=== PATIENT | female | born 1955 | race Caucasian/White ===

== ENCOUNTER 2017-12-18 03:52 | Emergency (ER) | payer OTHER ==
[2017-12-18] MEDS: LABETALOL HCL 20MG INJ IV (04:00)
[2017-12-18 04:19] LABS: ADD MAN DIFF? NO
[2017-12-18 04:20] LABS: WHITE BLOOD COUNT 9.6 10^3/ul (4.8-10.8)
[2017-12-18 04:20] LABS: BASOPHIL # 0.1 10^3/ul (0.0-0.1); BASOPHILS % 0.5 % (0.0-2.0); EOSINOPHILS # 0.2 10^3/ul (0.0-0.5); EOSINOPHILS % 2.1 % (0.0-7.0); HEMOGLOBIN 14.6 g/dl (12.0-16.0); LYMPHOCYTES # 3.2 10^3/ul (0.8-2.9); LYMPHOCYTES % 33.5 % (15.0-51.0); MEAN CORPUSCULAR HEMOGLOBIN 29.5 pg (29.0-33.0); MEAN CORPUSCULAR HGB CONC 33.2 g/dl (32.0-37.0); MEAN CORPUSCULAR VOLUME 88.9 fl (82.0-101.0); MEAN PLATELET VOLUME 10.4 fl (7.4-10.4); MONOCYTE # 0.8 10^3/ul (0.3-0.9); MONOCYTES % 8.5 % (0.0-11.0); NEUTROPHIL # 5.3 10^3/ul (1.6-7.5); NEUTROPHILS % 55.2 % (39.0-77.0); PLATELET COUNT 225 10^3/UL (140-415); RED BLOOD COUNT 4.95 10^6/ul (4.20-5.40); RED CELL DISTRIBUTION WIDTH 13.8 % (11.5-14.5)
[2017-12-18] MEDS: ACETAMINOPHEN 500 MG TAB PO (04:31)
[2017-12-18] MEDS: SOD CHLORIDE 0.9% 500 ML IV (04:31)
[2017-12-18 04:47] LABS: ANION GAP 17 (8-16); BLOOD UREA NITROGEN 13 mg/dl (7-20); CALCIUM 9.8 mg/dl (8.4-10.2); CARBON DIOXIDE 27 mmol/L (21-31); CHLORIDE 106 mmol/L (97-110); CREATINE KINASE 116 IU/L (23-200); CREATININE 0.87 mg/dl (0.44-1.00); GLUCOSE 128 mg/dl (70-220); POTASSIUM 3.8 mmol/L (3.5-5.1); SODIUM 146 mmol/L (135-144)
[2017-12-18 05:00] LABS: CK INDEX 0.7; TROPONIN-I < 0.012 ng/ml (0.000-0.120)
[2017-12-18 05:01] LABS: TROPONIN-I < 0.012 ng/ml (0.000-0.120)
== END 2017-12-18 06:02 | disposition home or self-care (01) ==
LOC: E/R 03:52
DX: I10 Essential (primary) hypertension (principal); R51 Headache; E03.9 Hypothyroidism, unspecified
CPT/HCPCS: 36415; 71045; 80048; 82550; 82553; 84484; 85025; 93005; 99285-25

== ENCOUNTER 2018-09-30 18:58 | Inpatient (IN) | payer OTHER ==
[2018-09-30] MEDS: ONDANSETRON 4 MG INJ IV (21:58)
[2018-09-30] MEDS: morphine 4 MG/ML VIAL IV (21:59)
[2018-09-30 22:11] LABS: ADD MAN DIFF? NO
[2018-09-30 22:14] LABS: BASOPHILS % 0.3 % (0.0-2.0); EOSINOPHILS # 0.1 10^3/ul (0.0-0.5); EOSINOPHILS % 0.7 % (0.0-7.0); HEMATOCRIT 44.6 % (37.0-47.0); HEMOGLOBIN 14.7 g/dl (12.0-16.0); LYMPHOCYTES # 1.9 10^3/ul (0.8-2.9); LYMPHOCYTES % 20.6 % (15.0-51.0); MEAN CORPUSCULAR HEMOGLOBIN 28.9 pg (29.0-33.0); MEAN CORPUSCULAR VOLUME 87.6 fl (82.0-101.0); MEAN PLATELET VOLUME 10.6 fl (7.4-10.4); MONOCYTE # 0.5 10^3/ul (0.3-0.9); MONOCYTES % 4.9 % (0.0-11.0); NEUTROPHIL # 6.8 10^3/ul (1.6-7.5); NEUTROPHILS % 73.2 % (39.0-77.0); PLATELET COUNT 252 10^3/UL (140-415); RED BLOOD COUNT 5.09 10^6/ul (4.20-5.40); RED CELL DISTRIBUTION WIDTH 14.4 % (11.5-14.5)
[2018-09-30 22:14] LABS: WHITE BLOOD COUNT 9.2 10^3/ul (4.8-10.8)
[2018-09-30 22:22] LABS: ALANINE AMINOTRANSFERASE 635 IU/L (13-69); ALBUMIN 4.8 g/dl (3.3-4.9); ALBUMIN/GLOBULIN RATIO 1.37; ALKALINE PHOSPHATASE 196 IU/L (42-121); ANION GAP 14 (5-13); ASPARTATE AMINO TRANSFERASE 451 IU/L (15-46); BILIRUBIN,INDIRECT 1.9 mg/dl (0-1.1); BILIRUBIN,TOTAL 2.3 mg/dl (0.2-1.3); BLOOD UREA NITROGEN 9 mg/dl (7-20); CALCIUM 9.9 mg/dl (8.4-10.2); CARBON DIOXIDE 27 mmol/L (21-31); CHLORIDE 101 mmol/L (97-110); CREATININE 0.88 mg/dl (0.44-1.00); Estimated GFR > 60 mL/min (>60); GLUCOSE 150 mg/dl (70-220); LIPASE 81 U/L (23-300); POTASSIUM 3.9 mmol/L (3.5-5.1); SODIUM 142 mmol/L (135-144); TOTAL PROTEIN 8.3 g/dl (6.1-8.1)
[2018-09-30 22:26] LABS: ADD UMIC YES; UR ASCORBIC ACID NEGATIVE (NEGATIVE); UR BILIRUBIN (Dip) NEGATIVE (NEGATIVE); UR BLOOD (Dip) 2+ mg/dL (NEGATIVE); UR CLARITY CLEAR (CLEAR); UR COLOR YELLOW (YELLOW); UR GLUCOSE (Dip) NEGATIVE (NEGATIVE); UR KETONES (Dip) NEGATIVE (NEGATIVE); UR LEUKOCYTE ESTERASE (Dip) NEGATIVE Leu/ul (NEGATIVE); UR NITRITE (Dip) NEGATIVE (NEGATIVE); UR RBC 4 /HPF (0-5); UR SPECIFIC GRAVITY (Dip) 1.004 (1.003-1.030); UR TOTAL PROTEIN (Dip) NEGATIVE (NEGATIVE); UR UROBILINOGEN (Dip) 2+ mg/dL (NEGATIVE); UR WBC 1 /HPF (0-5)
[2018-09-30 22:34] LABS: TROPONIN-I < 0.012 ng/ml (0.000-0.120)
[2018-10-01] MEDS ORDERED: BISACODYL (EC) 5 MG TAB PO (00:30)
[2018-10-01] MEDS ORDERED: HYDROmorphONE 0.5 MG/0.5 ML SYG IV (00:30)
[2018-10-01] MEDS ORDERED: NACL 0.9% 3 ML SYG IV (00:30)
[2018-10-01] MEDS ORDERED: ACETAMINOPHEN 325 MG TAB PO (00:30)
[2018-10-01] MEDS ORDERED: DOCUSATE SODIUM 100 MG CAP PO (00:30)
[2018-10-01 01:02] LABS: HAAIG REFLEX REFLEX FILED
[2018-10-01 01:20] LABS: ETHANOL < 10.0 mg/dl (0-0)
[2018-10-01 02:03] LABS: HEPATITIS B SURFACE ANTIGEN NEGATIVE (NEGATIVE)
[2018-10-01 02:16] LABS: ACETAMINOPHEN < 10.0 ug/ml (10.0-30.0)
[2018-10-01 02:16] LABS: SALICYLATE < 1.0 mg/dl (5.0-30.0)
[2018-10-01 02:21] LABS: HEPATITIS B CORE ANTIBODY NEGATIVE (NEGATIVE); HEPATITIS C VIRAL ANTIBODY NEGATIVE (NEGATIVE)
[2018-10-01] MEDS ORDERED: LORATADINE 10 MG TAB PO (03:00)
[2018-10-01 03:25] LABS: HEPATITIS B SURFACE ANTIBODY NEGATIVE (NEGATIVE)
[2018-10-01] MEDS: LOSARTAN 25 MG TAB PO ×2 (03:27→20:24)
[2018-10-01 05:51] LABS: ADD MAN DIFF? NO
[2018-10-01 05:57] LABS: BASOPHILS % 0.3 % (0.0-2.0); EOSINOPHILS # 0.2 10^3/ul (0.0-0.5); EOSINOPHILS % 2.5 % (0.0-7.0); HEMATOCRIT 42.3 % (37.0-47.0); HEMOGLOBIN 13.8 g/dl (12.0-16.0); LYMPHOCYTES # 1.9 10^3/ul (0.8-2.9); LYMPHOCYTES % 31.4 % (15.0-51.0); MEAN CORPUSCULAR HEMOGLOBIN 28.8 pg (29.0-33.0); MEAN CORPUSCULAR HGB CONC 32.6 g/dl (32.0-37.0); MEAN CORPUSCULAR VOLUME 88.3 fl (82.0-101.0); MEAN PLATELET VOLUME 10.7 fl (7.4-10.4); MONOCYTE # 0.4 10^3/ul (0.3-0.9); MONOCYTES % 6.4 % (0.0-11.0); NEUTROPHIL # 3.5 10^3/ul (1.6-7.5); NEUTROPHILS % 59.1 % (39.0-77.0); PLATELET COUNT 230 10^3/UL (140-415); RED BLOOD COUNT 4.79 10^6/ul (4.20-5.40); RED CELL DISTRIBUTION WIDTH 14.6 % (11.5-14.5)
[2018-10-01 05:57] LABS: WHITE BLOOD COUNT 5.9 10^3/ul (4.8-10.8)
[2018-10-01 06:17] LABS: HEMOGLOBIN A1C 5.4 % (0-5.9)
[2018-10-01 07:10] LABS: ALANINE AMINOTRANSFERASE 554 IU/L (13-69); ALBUMIN 4.2 g/dl (3.3-4.9); ALBUMIN/GLOBULIN RATIO 1.27; ALKALINE PHOSPHATASE 166 IU/L (42-121); ANION GAP 9 (5-13); ASPARTATE AMINO TRANSFERASE 334 IU/L (15-46); BLOOD UREA NITROGEN 9 mg/dl (7-20); CALCIUM 9.7 mg/dl (8.4-10.2); CARBON DIOXIDE 28 mmol/L (21-31); CHLORIDE 105 mmol/L (97-110); CHOL/HDL RATIO 3.1 RATIO; CHOLESTEROL 237 mg/dl (100-200); CREATININE 0.88 mg/dl (0.44-1.00); Estimated GFR > 60 mL/min (>60); GLUCOSE 90 mg/dl (70-220); HDL CHOLESTEROL 75 mg/dl (35-98); LDL CHOLESTEROL,CALCULATED 149 mg/dl; MAGNESIUM 1.9 mg/dl (1.7-2.5); POTASSIUM 3.9 mmol/L (3.5-5.1); SODIUM 142 mmol/L (135-144); TOTAL PROTEIN 7.5 g/dl (6.1-8.1); TRIGLYCERIDES 66 mg/dl (0-149)
[2018-10-01] MEDS: LEVOTHYROXINE 88 MCG TAB PO (07:28)
[2018-10-01] MEDS: FLUTICASONE 0.05% 16 GM NAS SPRAY NASAL ×3 (08:23→20:24)
[2018-10-01] MEDS: FAMOTIDINE 20 MG TAB PO ×2 (08:23→20:23)
[2018-10-01] MEDS ORDERED: LEVOTHYROXINE 88 MCG TAB PO (09:00)
[2018-10-01 10:51] LABS: INR 0.95; PROTIME 12.8 Sec (11.9-14.9)
[2018-10-01] MEDS: KETOROLAC 30 MG INJ IV (15:06)
[2018-10-01] MEDS ORDERED: LIDOCAINE 100 MG SYRINGE (17:08)
[2018-10-01] MEDS ORDERED: DEXAMETHASONE 4 MG/ML 5 ML INJ (17:08)
[2018-10-01] MEDS ORDERED: ONDANSETRON 4 MG INJ (17:08)
[2018-10-01] MEDS ORDERED: SUGAMMADEX SODIUM 200 MG/2 ML VIAL IV (17:08)
[2018-10-01] MEDS ORDERED: ROCURONIUM 50 MG INJ (17:08)
[2018-10-01] MEDS ORDERED: PROPOFOL 100 ML (17:08)
[2018-10-01] MEDS ORDERED: LABETALOL HCL 20MG INJ IV (17:30)
[2018-10-01] MEDS ORDERED: METOCLOPRAMIDE 10 MG INJ IV (17:30)
[2018-10-01] MEDS ORDERED: INDOMETHACIN 50 MG SUPP PR (17:30)
[2018-10-01] MEDS ORDERED: FENTAnyl 50 MCG/ML VIAL IV ×2 (17:30)
[2018-10-01] MEDS ORDERED: ONDANSETRON 4 MG INJ IV (17:30)
[2018-10-01] MEDS ORDERED: hydrALAzine 20 MG INJ IV (17:30)
[2018-10-01] MEDS ORDERED: FENTAnyl 50 MCG/ML VIAL ×2 (17:36→18:18)
[2018-10-02 05:17] LABS: ADD MAN DIFF? NO
[2018-10-02 05:23] LABS: BASOPHILS % 0.1 % (0.0-2.0); HEMATOCRIT 43.2 % (37.0-47.0); HEMOGLOBIN 14.2 g/dl (12.0-16.0); LYMPHOCYTES # 1.1 10^3/ul (0.8-2.9); LYMPHOCYTES % 11.6 % (15.0-51.0); MEAN CORPUSCULAR HGB CONC 32.9 g/dl (32.0-37.0); MEAN CORPUSCULAR VOLUME 88.2 fl (82.0-101.0); MEAN PLATELET VOLUME 10.6 fl (7.4-10.4); MONOCYTE # 0.2 10^3/ul (0.3-0.9); MONOCYTES % 1.9 % (0.0-11.0); NEUTROPHIL # 7.8 10^3/ul (1.6-7.5); PLATELET COUNT 242 10^3/UL (140-415); RED CELL DISTRIBUTION WIDTH 14.2 % (11.5-14.5)
[2018-10-02] MEDS: LEVOTHYROXINE 88 MCG TAB PO (05:26)
[2018-10-02 05:46] LABS: PHOSPHORUS 3.2 mg/dl (2.5-4.9)
[2018-10-02 05:46] LABS: MAGNESIUM 1.7 mg/dl (1.7-2.5)
[2018-10-02 05:49] LABS: ALANINE AMINOTRANSFERASE 416 IU/L (13-69); ALBUMIN 4.1 g/dl (3.3-4.9); ALBUMIN/GLOBULIN RATIO 1.28; ALKALINE PHOSPHATASE 152 IU/L (42-121); ANION GAP 9 (5-13); ASPARTATE AMINO TRANSFERASE 162 IU/L (15-46); BILIRUBIN,INDIRECT 1.1 mg/dl (0-1.1); BILIRUBIN,TOTAL 1.1 mg/dl (0.2-1.3); BLOOD UREA NITROGEN 13 mg/dl (7-20); CALCIUM 9.7 mg/dl (8.4-10.2); CARBON DIOXIDE 27 mmol/L (21-31); CHLORIDE 104 mmol/L (97-110); Estimated GFR > 60 mL/min (>60); GLUCOSE 150 mg/dl (70-220); POTASSIUM 4.5 mmol/L (3.5-5.1); SODIUM 140 mmol/L (135-144); TOTAL PROTEIN 7.3 g/dl (6.1-8.1)
[2018-10-02] MEDS ORDERED: SUCCINYLCHOLINE CHLORIDE 100 MG/5 ML SYG IV (07:00)
[2018-10-02] MEDS ORDERED: ROPIVACAINE 0.5 % 30 ML VIAL (07:59)
[2018-10-02] MEDS ORDERED: ROCURONIUM 50 MG INJ (07:59)
[2018-10-02] MEDS ORDERED: LIDOCAINE 1% (MDV) 20 ML INJ (07:59)
[2018-10-02] MEDS ORDERED: MIDAZOLAM 1 MG/ML 2 ML INJ (07:59)
[2018-10-02] MEDS ORDERED: PROPOFOL 20 ML (07:59)
[2018-10-02] MEDS ORDERED: HYDROmorphONE 1 MG/5 ML IV SYRINGE IV (08:00)
[2018-10-02] MEDS ORDERED: LABETALOL HCL 20MG INJ IV (08:00)
[2018-10-02] MEDS ORDERED: DIPHENHYDRAMINE 50 MG INJ IV (08:00)
[2018-10-02] MEDS ORDERED: MEPERIDINE 25 MG INJ IV (08:00)
[2018-10-02] MEDS ORDERED: CEFAZOLIN 1 GM INJ (08:34)
[2018-10-02] MEDS ORDERED: DEXAMETHASONE 4 MG/ML 5 ML INJ (08:38)
[2018-10-02] MEDS ORDERED: ONDANSETRON 4 MG INJ (08:38)
[2018-10-02] MEDS: BUPIVACAINE 0.25% (MPF) 30 ML INJ (08:44)
[2018-10-02] MEDS ORDERED: LABETALOL HCL 20MG INJ (08:56)
[2018-10-02] MEDS: FLUTICASONE 0.05% 16 GM NAS SPRAY NASAL ×2 (09:00→20:50)
[2018-10-02] MEDS: FAMOTIDINE 20 MG TAB PO ×2 (09:00→20:54)
[2018-10-02] MEDS ORDERED: NEOSTIGMINE 10 MG INJ (09:17)
[2018-10-02] MEDS ORDERED: GLYCOPYRROLATE 0.4 MG INJ (09:17)
[2018-10-02 09:46] LABS: FREE T4 (FREE THYROXINE) 0.96 ng/dl (0.78-2.44)
[2018-10-02] MEDS ORDERED: ONDANSETRON 4 MG INJ IV (10:00)
[2018-10-02] MEDS ORDERED: OXYCODONE/ACETAMINOPHEN (5/325) TAB PO ×2 (10:00)
[2018-10-02] MEDS ORDERED: morphine 2 MG INJ IV (10:00)
[2018-10-02] MEDS: ONDANSETRON 4 MG INJ IV (10:32)
[2018-10-02] MEDS: HYDROmorphONE 1 MG/5 ML IV SYRINGE IV (10:32)
[2018-10-02] MEDS: hydrALAzine 20 MG INJ IV (10:33)
[2018-10-02] MEDS: KETOROLAC 30 MG INJ IV (17:25)
[2018-10-02] MEDS: LOSARTAN 25 MG TAB PO (20:50)
[2018-10-03 05:57] LABS: ADD MAN DIFF? NO
[2018-10-03 06:02] LABS: BASOPHILS % 0.1 % (0.0-2.0); EOSINOPHILS % 0.1 % (0.0-7.0); HEMATOCRIT 36.8 % (37.0-47.0); HEMOGLOBIN 12.3 g/dl (12.0-16.0); LYMPHOCYTES # 2.1 10^3/ul (0.8-2.9); LYMPHOCYTES % 13.9 % (15.0-51.0); MEAN CORPUSCULAR HEMOGLOBIN 29.4 pg (29.0-33.0); MEAN CORPUSCULAR HGB CONC 33.4 g/dl (32.0-37.0); MEAN PLATELET VOLUME 11.3 fl (7.4-10.4); MONOCYTE # 0.9 10^3/ul (0.3-0.9); MONOCYTES % 5.6 % (0.0-11.0); NEUTROPHIL # 12.2 10^3/ul (1.6-7.5); NEUTROPHILS % 79.9 % (39.0-77.0); PLATELET COUNT 213 10^3/UL (140-415); RED BLOOD COUNT 4.18 10^6/ul (4.20-5.40)
[2018-10-03 06:02] LABS: WHITE BLOOD COUNT 15.2 10^3/ul (4.8-10.8)
[2018-10-03 06:31] LABS: ALANINE AMINOTRANSFERASE 222 IU/L (13-69); ALBUMIN 3.4 g/dl (3.3-4.9); ALBUMIN/GLOBULIN RATIO 1.41; ALKALINE PHOSPHATASE 93 IU/L (42-121); ANION GAP 9 (5-13); ASPARTATE AMINO TRANSFERASE 71 IU/L (15-46); BILIRUBIN,INDIRECT 0.9 mg/dl (0-1.1); BILIRUBIN,TOTAL 0.9 mg/dl (0.2-1.3); BLOOD UREA NITROGEN 17 mg/dl (7-20); CALCIUM 9.2 mg/dl (8.4-10.2); CARBON DIOXIDE 27 mmol/L (21-31); CHLORIDE 107 mmol/L (97-110); CREATININE 0.92 mg/dl (0.44-1.00); Estimated GFR > 60 mL/min (>60); GLUCOSE 109 mg/dl (70-220); SODIUM 143 mmol/L (135-144); TOTAL PROTEIN 5.8 g/dl (6.1-8.1)
[2018-10-03 06:54] LABS: MAGNESIUM 1.8 mg/dl (1.7-2.5)
[2018-10-03 06:54] LABS: PHOSPHORUS 3.3 mg/dl (2.5-4.9)
[2018-10-03] MEDS: FLUTICASONE 0.05% 16 GM NAS SPRAY NASAL (09:00)
[2018-10-03] MEDS: FAMOTIDINE 20 MG TAB PO (09:00)
[2018-10-03] MEDS: LEVOTHYROXINE 88 MCG TAB PO (09:10)
[2018-10-04] MEDS ORDERED: CHOLECALCIFEROL 1,000 UNIT TAB PO (09:00)
== END 2018-10-03 13:19 | disposition home or self-care (01) | DRG 419 ==
LOC: E/R 18:58 → MS1 10-01 00:15
PROC: 0F798DZ Dilation of Common Bile Duct with Intraluminal Device, Via Natural or Artificial Opening Endoscopic (ICD-10-PCS; 2018-10-01 17:30)
PROC: 0FC98ZZ Extirpation of Matter from Common Bile Duct, Via Natural or Artificial Opening Endoscopic (ICD-10-PCS; 2018-10-01 17:30)
PROC: 0FT44ZZ Resection of Gallbladder, Percutaneous Endoscopic Approach (ICD-10-PCS; principal; 2018-10-01 17:45)
DX: K80.64 Calculus of gallbladder and bile duct with chronic cholecystitis without obstruction (principal); I10 Essential (primary) hypertension; E03.9 Hypothyroidism, unspecified; E78.5 Hyperlipidemia, unspecified
CPT/HCPCS: 36415; 74330; 76705; 80053; 80061; 80307; 81001; 82306; 83036; 83690; 83735; 84100; 84439; 84443; 84484; 85025; 85610; 86704; 86706; 86709; 86803; 87340; 88304; 93005; 96374; 96375; 99285-25

== ENCOUNTER 2018-12-10 13:37 | Emergency (ER) | payer OTHER ==
[2018-12-10] MEDS: SOD CHLORIDE 0.9% 1,000 ML IV (15:46)
[2018-12-10 15:47] LABS: ADD MAN DIFF? NO
[2018-12-10 15:48] LABS: WHITE BLOOD COUNT 10.9 10^3/ul (4.8-10.8)
[2018-12-10 15:48] LABS: BASOPHIL # 0.1 10^3/ul (0.0-0.1); BASOPHILS % 0.5 % (0.0-2.0); EOSINOPHILS # 0.1 10^3/ul (0.0-0.5); EOSINOPHILS % 1.3 % (0.0-7.0); HEMATOCRIT 45.2 % (37.0-47.0); HEMOGLOBIN 14.8 g/dl (12.0-16.0); LYMPHOCYTES % 27.8 % (15.0-51.0); MEAN CORPUSCULAR HEMOGLOBIN 28.8 pg (29.0-33.0); MEAN CORPUSCULAR HGB CONC 32.7 g/dl (32.0-37.0); MEAN CORPUSCULAR VOLUME 88.1 fl (82.0-101.0); MEAN PLATELET VOLUME 10.6 fl (7.4-10.4); MONOCYTE # 0.7 10^3/ul (0.3-0.9); MONOCYTES % 6.3 % (0.0-11.0); NEUTROPHILS % 63.8 % (39.0-77.0); PLATELET COUNT 245 10^3/UL (140-415); RED BLOOD COUNT 5.13 10^6/ul (4.20-5.40); RED CELL DISTRIBUTION WIDTH 13.5 % (11.5-14.5)
[2018-12-10] MEDS: ONDANSETRON 4 MG INJ IV (15:52)
[2018-12-10] MEDS: KETOROLAC 30 MG INJ IV (15:53)
[2018-12-10 16:18] LABS: ALANINE AMINOTRANSFERASE 26 IU/L (13-69); ALBUMIN 4.6 g/dl (3.3-4.9); ALBUMIN/GLOBULIN RATIO 1.31; ALKALINE PHOSPHATASE 98 IU/L (42-121); ANION GAP 11 (5-13); ASPARTATE AMINO TRANSFERASE 22 IU/L (15-46); BILIRUBIN,INDIRECT 0.9 mg/dl (0-1.1); BILIRUBIN,TOTAL 0.9 mg/dl (0.2-1.3); BLOOD UREA NITROGEN 13 mg/dl (7-20); CALCIUM 9.9 mg/dl (8.4-10.2); CARBON DIOXIDE 28 mmol/L (21-31); CHLORIDE 104 mmol/L (97-110); CREATININE 0.82 mg/dl (0.44-1.00); Estimated GFR > 60 mL/min (>60); GLUCOSE 105 mg/dl (70-220); LIPASE 72 U/L (23-300); POTASSIUM 3.9 mmol/L (3.5-5.1); SODIUM 143 mmol/L (135-144); TOTAL PROTEIN 8.1 g/dl (6.1-8.1)
[2018-12-10 16:29] LABS: TROPONIN-I < 0.012 ng/ml (0.000-0.120)
== END 2018-12-10 18:31 | disposition home or self-care (01) ==
LOC: E/R 18:31
DX: R10.84 Generalized abdominal pain (principal)
CPT/HCPCS: 36415; 74176; 80053; 83690; 84484; 85025; 93005; 96374; 96375; 99285-25